=== PATIENT | female | born 1990 | race Caucasian/White ===

== ENCOUNTER 2018-09-25 11:55 | Day surgery (SDC) | payer OTHER ==
[2018-09-21 09:37] VITALS: BMI 30.9
[~2018-09-25 11:55] MED LIST: PROPOFOL 200 MG/20 ML VIAL ONE
[2018-09-25] MEDS ORDERED: Iothalamate Meglumine 60% 50 ML VIAL FS ONE (14:01)
[2018-09-25] MEDS ORDERED: Fentanyl 100 MCG/2 ML VIAL ONE (15:03)
--- NOTE | 2018-09-25 22:38 | OP ---
DATE OF PROCEDURE: 09/25/2018 PROCEDURE PERFORMED: Esophagogastroduodenoscopy with Savary dilation. PREPROCEDURE DIAGNOSES: 1. Dysphagia. 2. Histologically confirmed eosinophilic esophagitis. 3. Distal esophageal stricture, diagnosed on previous esophagogastroduodenoscopy. POSTPROCEDURE DIAGNOSES: 1. Exam to second portion of duodenum. 2. A 3-cm sliding hiatal hernia from 37 to 40 cm from the incisors. 3. Esophageal narrowing at 36 cm, dilated with Savary dilators over the guidewire (10 mm, 11 mm, 12 mm, and 12.8 mm). 4. Normal stomach. 5. Normal duodenum. DESCRIPTION OF PROCEDURE: Written informed consent was obtained. The patient was brought to the fluoroscopy suite. Total intravenous anesthesia was provided by [facility]. The patient was placed in the left lateral decubitus position. A bite block was inserted into the mouth. A Pentax video diagnostic gastroscope with a tip measuring 9 mm in diameter was introduced into the oral cavity and the esophagus was carefully intubated. The gastroscope was advanced under direct visualization to the second portion of the duodenum. Initially, it was anticipated that fluoroscopy would be needed to insert the guidewire into the distal stomach due to the narrowness of the esophageal lumen. However, the patient was previously treated with a short course of Nexium and fluticasone b.i.d., and it appeared the stenosis had responded to the medical therapy. A flexible-tip guidewire was introduced into the distal stomach in order to perform the Savary dilation. Then, using the flexible Savary dilators, serial dilation over guidewire was performed using the 10 mm, then 11 mm, then 12 mm, and then 12.8 mm dilators each inserted over guidewire. Postdilation, the endoscope was introduced back into the stomach to evaluate the dilated area. No esophageal tear, bleeding, or perforation was identified. One short linear area in the lower esophagus demonstrated a streak of erythema, but no active bleeding. The endoscope was then completely removed from the patient, and the procedure was terminated. She was then transferred to the Day Stay Surgery area for postprocedure monitoring. RECOMMENDATIONS: 1. Continue esomeprazole 40 mg b.i.d. and fluticasone inhaler two inhalations sprayed into the mouth b.i.d. 2. Follow up with me in the office in 3 to 4 weeks. 3. Repeat EGD with dilation as needed. Job ID: [id number]
== END 2018-09-25 16:48 | disposition home or self-care (01) ==
LOC: SDC 11:55
PROVIDERS: ATTEND Internal Medicine Gastroenterology
PROC: 0D758ZZ Dilation of Esophagus, Via Natural or Artificial Opening Endoscopic (ICD-10-PCS; principal; 2018-09-25)
DX: K22.2 Esophageal obstruction (principal); K20.0 Eosinophilic esophagitis; K44.9 Diaphragmatic hernia without obstruction or gangrene; Z79.899 Other long term (current) drug therapy; Z88.2 Allergy status to sulfonamides
CPT/HCPCS: J1610; J2704; J3010; Q9961

== ENCOUNTER 2018-12-18 09:23 | Outpatient (CLI) | payer OTHER ==
--- NOTE | 2018-12-18 09:44 | ULT ---
SOFT TISSUE NECK ULTRASOUND: CLINICAL HISTORY: Dysphagia. No prior comparison imaging. FINDINGS: The imaged soft tissues of the neck bilaterally are unremarkable, without evidence of mass or focal f luid collection. No soft tissue edema. Unremarkable appearance of traversing vasculature. No obvious thyroid masses. IMPRESSION: No acute abnormality of the neck soft tissues is evident by sonographic evaluation. Transcribed Date/Time: 12/18/2018 11:18 AM
--- NOTE | 2018-12-18 10:38 | RAD ---
PA AND LATERAL CHEST: HISTORY: Chest pain and low back pain. FINDINGS: Heart size and mediastinum are within normal limits. The lungs are clear of infiltrates. No signifi cant bony findings. IMPRESSION: No active intrathoracic disease. POS: C
== END 2018-12-18 09:24 | disposition home or self-care (01) ==
LOC: BICULT 09:23
PROVIDERS: ATTEND Physician Assistant Medical
DX: R07.9 Chest pain, unspecified (principal); R13.13 Dysphagia, pharyngeal phase; K20.0 Eosinophilic esophagitis; K22.2 Esophageal obstruction
CPT/HCPCS: 71046; 76536